=== PATIENT | male | born 1980 | race Caucasian/White ===

== ENCOUNTER 2017-07-12 02:25 | Emergency (ER) | payer BC, OTHER ==
[~2017-07-12] VITALS: Ht 172.7 cm; Wt 77.1 kg
--- NOTE | ~2017-07-12 | EKG ---
[address] [address] ELECTROCARDIOGRAM REPORT Name: NATHANIEL BANGURA [id number] Admission: 07/12/17 Attend Phys: Discharge: 07/12/17 Date of : 76 Report #: [id number] THIS REPORT FOR: //name// [facility] ED Test Date: 2017-07-12 Test Time: 03:15:38 Pat Name: NATHANIEL BANGURA Department: Room: Gender: M Lead Dental Assistant: [id number] : 1980 Requested By: Benitez Pearce Order Number: [id number] MD: Tim Squires Measurements Intervals Roxana Rate: 43 P: 39 FL: 189 QRS: 109 QRSD: 136 T: 59 QT: 440 QTc: 373 Interpretive Statements Sinus bradycardia Nonspecific intraventricular conduction delay Rightward axis Compared to ECG 11/27/2015 19:54:29 Sinus tachycardia no longer present Electronically Signed On 07-12-2017 8:47:10 CDT by Tim Squires [email or web address] <ELECTRONICALLY SIGNED> By: Tim Squires MD, [facility] 07/12/17 0847 4 4 Tim Squires MD, FAC /EPI
[~2017-07-12 02:25] MED LIST: CHLORTHALIDONE25 MG PO; LISINOPRIL-HCT1 EACH PO; POTASSIUM20 PO; PRILOSEC40 MG PO; PROZAC 10 MG CA10 MG; TOPROL XL100 MG PO; ZANAFLEX4 MG PO; ZOLOFT25 MG
[2017-07-12 03:31] LABS: ANION GAP 8 mmol/L (7-16); BUN 14 mg/dL (7-18); CALCIUM 9.3 mg/dL (8.5-10.1); CHLORIDE 102 mmol/L (98-107); CO2 30 mmol/L (21-32); CREATININE 1.1 mg/dL (0.7-1.3); GLUCOSE 137 mg/dL (74-106); SODIUM 140 mmol/L (136-145)
[2017-07-12 03:34] LABS: APTT 29.9 Seconds (24.5-32.8); POTASSIUM 2.9 mmol/L (3.5-5.1); PROTIME 10.3 Seconds (9.3-11.4)
[2017-07-12 03:37] LABS: ABSOLUTE NEUTROPHILS 5.4 thou/uL (1.4-8.2); BASOPHILS 0.5 % (0.0-2.0); EOSINOPHILS 0.7 % (0.0-3.0); HEMATOCRIT 45.9 % (42.0-52.0); HEMOGLOBIN 16.3 gm/dL (14.0-18.0); LYMPHOCYTES 26.7 % (24.0-44.0); MCH 32.7 pg (26.0-34.0); MCHC 35.5 g/dL (28.0-37.0); MCV 92.1 fL (80.0-100.0); MONOCYTES 9.6 % (1.0-8.0); PLATELET COUNT 250 thou/uL (150-400); POLYS 62.5 % (36.0-66.0); RBC 4.98 mil/uL (4.50-6.00); RDW 12.6 % (10.5-14.5); WBC 8.6 thou/uL (4.0-11.0)
[2017-07-12 03:39] LABS: MANUAL DIFF NO
[2017-07-12 03:46] LABS: ALBUMIN 4.3 g/dL (3.4-5.0); ALKALINE PHOSPHATASE 90 U/L (46-116); MAGNESIUM 1.8 mg/dL (1.8-2.4); SGOT 30 U/L (15-37); SGPT 46 U/L (30-65); TOTAL BILIRUBIN 0.6 mg/dL (<0.1-1.0); TOTAL PROTEIN 8.1 g/dL (6.4-8.2); TROPONIN-I < 0.04 ng/mL (<0.04-0.07)
[2017-07-12] MEDS ORDERED: ZOFRAN ODT8 MG PO (04:57)
[2017-07-12] MEDS ORDERED: NORCO 5-325 TA1 EACH PO (04:57)
[2017-07-12 05:23] VITALS: BP 116/71
== END 2017-07-12 05:25 | disposition home or self-care (01) ==
LOC: ER 02:25
PROVIDERS: Emergency Medicine
DX: K80.12 Calculus of gallbladder with acute and chronic cholecystitis without obstruction (principal); I10 Essential (primary) hypertension

== ENCOUNTER 2017-08-01 06:21 | Day surgery (SDC) | payer BC, OTHER ==
[~2017-08-01] VITALS: Ht 172.7 cm; Wt 72.1 kg
--- NOTE | ~2017-08-01 | S ---
[facility] [place] [address] SURGICAL PATH RPT PROCEDURE Name: JAVY BANGURA Room #: DEP [facility] M..#: [id number] Admission: 08/01/17 Date of : 76 Discharge: 08/01/17 Report #: [id number] Path Case #: [id number] PATHOLOGY REPORT COLLECTION DATE: 08/01/2017 RECEIVED DATE: 08/02/2017 SUBMITTING PHYS: Dr. Jose Martinez OTHER PHYS: Dr. Clem Farias SPECIMEN(S) RECEIVED: A.Gallbladder * * * * * * * * * * * * FINAL DIAGNOSIS: A. Gallbladder, cholecystectomy: - Acute and chronic calculous cholecystitis. PATHOLOGIST: Rodo Stewart M.D. REPORT ELECTRONICALLY SIGNED BY: Rodo Stewart M.D. DATE/TIME: 08/05/2017 11:58 * * * * * * * * * * * * GROSS PATHOLOGY: The specimen is received in formalin, labeled "Javy Bangura gallbladder" and consists of an intact, glistening, pink, and hemorrhagic 7.5 x 2.2 x 1.9 cm gallbladder. The margin is inked. There is a mckeon brown and slightly translucent 2.3 cm calculus lodged within the fundus. The wall ranges in thickness from 0.1 cm to 0.5 cm. The mucosa is granular, slightly velvety, glistening, and green. Corrosion Technician sections are submitted as A1. (ASHLEY; 08/02/2017) CLINICAL HISTORY: Gallstones INITIAL CPT CODE(S): A; 91535 Professional services performed by [facility] at [facility] [address], [place] [address] Technical services performed by [facility] at [address] [place] [id number]. [facility] [address] [place] [address] SURGICAL PATH RPT PROCEDURE Name: JAVY BANGURA Room #: DEP [facility] Sheri#: [id number] Admission: 08/01/17 Date of : 76 Discharge: 08/01/17 Report #: [id number] Path Case #: [id number] [facility] [address] [address] PHONE: [phone] DIRECTOR: Valentin Lawson M.D. * * * END OF REPORT * * *
--- NOTE | ~2017-08-01 | O ---
[facility] [place] [address] OPERATIVE REPORT Name: NATHANIEL BANGURA Room #: [place] [facility] M..#: [id number] Admission: 08/01/17 Attend Phys: Jose Martinez MD Discharge: 08/01/17 Date of : 76 Report #: [id number] THIS REPORT FOR: //name// CC: Clem Wilkes DATE OF SERVICE: 08/01/2017 PATIENT OF: Dr. Jose Martinez and Dr. Clem Farias. PREOPERATIVE DIAGNOSES: Cholelithiasis, cholecystitis, and biliary colic. POSTOPERATIVE DIAGNOSES: Cholelithiasis, cholecystitis, and biliary colic. PROCEDURE: Laparoscopic cholecystectomy. SURGEON: Jose Martinez MD COMMERCIAL PORTFOLIO MANAGER: Anyi Bautista RN ANESTHESIA: General. DESCRIPTION OF PROCEDURE: The patient was brought to the operating room and placed on operative table in the supine position. Sequential compression devices were in place for DVT prophylaxis. He underwent a general endotracheal anesthesia. Abdomen was then prepped and draped in a sterile fashion. Skin and subcutaneous tissue around the umbilicus was then infiltrated with 0.5% Marcaine. Infraumbilical skin incision was then performed using #11 scalpel blade. Hemostasis obtained using electrocautery. Dissection was carried down through subcutaneous tissue of the fascia, which was then grasped between 2 Donavon clamps and incised with curved Whitney scissors. The peritoneum was entered and a pursestring suture of 0 Vicryl was then placed in the fascia. A 12-mm disposable Jamel port was then inserted through the opening and held into place with the pursestring suture. Pneumoperitoneum was obtained to a level of 10-15 mmHg. Laparoscope was then inserted through this port and exploration was performed, which revealed a thickened dilated gallbladder with acute changes. There were no other intraabdominal abnormalities. Two lateral 5-mm Surgiport as well as an upper midline 12-mm Surgiport were all inserted under direct visualization after infiltration with 0.5% Marcaine. The gallbladder was then grasped and retracted superiorly and the cystic duct and artery were carefully dissected free. The cystic common bile duct junction was clearly identified. The cystic artery was then doubly clipped on each side and divided with scissors. The cystic duct was then triply clipped on the common bile duct side, doubly clipped on the gallbladder side and divided with the scissors. The gallbladder was then dissected free from the bed using a hook electrocautery. [facility] [address] [place] [address] OPERATIVE REPORT Name: NATHANIEL BANGURA [facility] [id number] Admission: 08/01/17 Attend Phys: Jose Martinez MD Discharge: 08/01/17 Date of : 76 Report #: [id number] Prior to completing the dissection, the gallbladder was retracted superiorly and the bed inspected for hemostasis, which was obtained using electrocautery and found to be intact. Gallbladder was then transected and brought out through the periumbilical port and sent as specimen to pathology. Port was then returned to the abdomen. The area was then copiously irrigated with warm saline solution, which was suctioned free. Hemostasis was checked and found to be intact. Ports were then all removed under direct visualization, hemostasis intact at each port site. Pneumoperitoneum was released and the periumbilical port was then also removed under direct visualization. Hemostasis intact at that port site as well. The periumbilical fascia was then closed using 0 Vicryl pursestring suture. The upper midline fascia was then closed using a [id number] 0 Vicryl suture. Skin was then closed using interrupted vertical mattress 5-0 nylon sutures and the wound was dressed with Band-Aids. The patient was then awakened from the general endotracheal anesthesia, extubated, and taken to recovery room in good condition. Estimated blood loss was approximately 10 mL and the patient tolerated the procedure well. All sponge, lap and instrument counts correct times 2. <ELECTRONICALLY SIGNED> By: Jose Martinez MD 08/02/17 1543 1517 1630 Jose Martinez MD /nt
[~2017-08-01 06:21] MED LIST changes: +HYDROCODONE-AP1 EAC6 PO; +LOPRESSOR50 PO; +NORCO 5-325 TA1 EACH PO; +ZOFRAN ODT8 MG PO
[2017-08-01 12:09] LABS: HEMATOCRIT 45.6 % (42.0-52.0); HEMOGLOBIN 16.1 gm/dL (14.0-18.0); MCH 32.3 pg (26.0-34.0); MCHC 35.5 g/dL (28.0-37.0); MCV 91.2 fL (80.0-100.0); RDW 12.2 % (10.5-14.5); WBC 7.1 thou/uL (4.0-11.0)
[2017-08-01 12:22] LABS: CALCIUM 9.1 mg/dL (8.5-10.1); CREATININE 1.1 mg/dL (0.7-1.3); POTASSIUM 3.1 mmol/L (3.5-5.1)
[2017-08-01 12:28] LABS: ALBUMIN 4.5 g/dL (3.4-5.0); TOTAL BILIRUBIN 0.8 mg/dL (<0.1-1.0)
[2017-08-01 13:13] VITALS: BP 145/84
[2017-08-01] MEDS ORDERED: NORCO 5-325 TA1 EACH PO (15:25)
== END 2017-08-01 12:00 ==
LOC: TBA 06:21 → OR 06:21 → TBA 06:22 → OR 10:22
PROVIDERS: Surgery
DX: K80.60 Calculus of gallbladder and bile duct with cholecystitis, unspecified, without obstruction (principal); I10 Essential (primary) hypertension; Z98.890 Other specified postprocedural states; Z79.899 Other long term (current) drug therapy
CPT/HCPCS: 50010; 50101; 50411; 50555; 50558; 51474; 51489; 51975; 52266; 53312; 53314; 56462; 56524; 56528; 62110; 62900; 70005

== ENCOUNTER 2020-07-18 16:17 | Emergency (ER) | payer BC, OTHER ==
[~2020-07-18] VITALS: Ht 180.3 cm; Wt 79.4 kg
[2020-07-18 17:19] LABS: ABSOLUTE NEUTROPHILS 6.1 thou/uL (1.4-8.2); BASOPHILS 0.3 % (0.0-2.0); EOSINOPHILS 0.7 % (0.0-3.0); HEMATOCRIT 43.9 % (42.0-52.0); HEMOGLOBIN 15.2 gm/dL (14.0-18.0); LYMPHOCYTES 20.5 % (24.0-44.0); MCH 32.4 pg (26.0-34.0); MCHC 34.6 g/dL (28.0-37.0); MCV 93.7 fL (80.0-100.0); MONOCYTES 10.9 % (1.0-8.0); PLATELET COUNT 228 thou/uL (150-400); POLYS 67.6 % (36.0-66.0); RBC 4.69 mil/uL (4.50-6.00); RDW 12.7 % (10.5-14.5)
[2020-07-18 17:27] LABS: CALCIUM 8.7 mg/dL (8.5-10.1); CREATININE 0.9 mg/dL (0.7-1.3)
[2020-07-18 17:31] LABS: POTASSIUM 2.9 mmol/L (3.5-5.1)
[2020-07-18 17:33] LABS: ALBUMIN 3.9 g/dL (3.4-5.0); TOTAL BILIRUBIN 0.7 mg/dL (0.2-1.0); TOTAL PROTEIN 7.8 g/dL (6.4-8.2); URIC ACID* 4.4 mg/dL (3.5-7.2)
[2020-07-18] MEDS ORDERED: KEFLEX500 M1 PO (17:42)
[2020-07-18] MEDS ORDERED: POTASSIUM20 PO (17:42)
[2020-07-18 18:15] VITALS: BP 121/81
== END 2020-07-18 18:16 | disposition home or self-care (01) ==
LOC: ER 16:17
PROVIDERS: Physician Assistant
DX: S80.212A Abrasion, left knee, initial encounter (principal); L03.116 Cellulitis of left lower limb; I10 Essential (primary) hypertension; Z79.899 Other long term (current) drug therapy; X50.1XXA Overexertion from prolonged static or awkward postures, initial encounter; Y93.89 Activity, other specified; Y92.89 Other specified places as the place of occurrence of the external cause; Y99.8 Other external cause status